=== PATIENT | female | born 2000 | race African-American/Black ===

== ENCOUNTER 2025-05-01 08:23 | Outpatient (CLI) | payer BC ==
[2025-05-01 09:08] LABS: #Basophils 0.06 10x3/uL (0.0-0.2); #Eosinophils 0.22 10x3/uL (0.0-0.7); #Monocytes 0.86 10x3/uL (0.11-0.59); #Neutrophils 5.30 10x3/uL (1.40-6.50); %Basophils 0.7 % (0.0-1.0); %Eosinophils 2.5 % (0.0-10.0); %Lymphocytes 27.9 % (21.0-51.0); %Monocytes 9.6 % (0.0-10.0); %Neutrophils 59.0 % (42.0-75.0); Hematocrit 39.2 % (36.0-47.0); Hemoglobin 12.3 g/dL (12.0-16.0); Mean Corpuscular Hemoglobin 25.6 pg (27.0-31.0); Mean Corpuscular Volume 81.5 fL (78.0-98.0); Platelet Count 318 10x3/uL (130-400); Red Blood Cell (RBC) Count 4.81 mill/uL (4.20-5.40); White Blood Cell (WBC) Count 8.97 10x3/uL (4.8-10.8)
[2025-05-01 09:19] LABS: BHCG - Serum Negative (NEGATIVE); Pregs Control Background? CLEAR/WHITE (CLR/WHITE); Pregs Control Bar Appear? YES (CONTROL BAR)
[2025-05-01 09:24] LABS: ALT (SGPT) 26 U/L (Less than 34); AST (SGOT) 25 U/L (11-34); Albumin 3.7 g/dL (3.1-4.5); Alkaline Phosphatase 89 U/L (40-110); Anion Gap 14 mmol/L (10-20); BUN (Urea Nitrogen) 12 mg/dL (7.0-18.7); Bilirubin, Total 0.3 mg/dL (0.3-1.2); Calc. Creatinine Clearance 0 mL/min (70-130); Calcium 9.4 mg/dL (7.8-10.44); Carbon Dioxide 22 mmol/L (22-29); Chloride 104 mmol/L (98-107); Globulin 3.9 g/dL (2.4-3.5); Glucose 83 mg/dL (70-105); Potassium 3.6 mmol/L (3.5-5.1); Sodium 136 mmol/L (136-145)
== END 2025-05-01 08:24 | disposition home or self-care (01) ==
LOC: LABBT 08:23
PROVIDERS: ATTEND Surgery
DX: Z01.812 Encounter for preprocedural laboratory examination (principal); K21.9 Gastro-esophageal reflux disease without esophagitis; E66.01 Morbid (severe) obesity due to excess calories
CPT/HCPCS: 80053; 83036; 84703; 85025

== ENCOUNTER 2025-05-06 07:46 | Inpatient (IN) | payer BC ==
[2025-05-01 08:43] VITALS: BMI 44.1
[2025-05-06] MEDS ORDERED: Rocuronium Bromide 10 MG/ML (10ML VIAL) ONE (08:12)
[2025-05-06] MEDS ORDERED: fentaNYL PF 100 MCG/2 ML SYRINGE ONE ×2 (08:12→10:40)
[2025-05-06] MEDS ORDERED: Lidocaine 1% PF 5 ML VIAL ONE (08:12)
[2025-05-06] MEDS ORDERED: Acetaminophen 500 MG TAB ONE (08:38)
[2025-05-06] MEDS ORDERED: Heparin 5,000 UNITS/ML VIAL ONE (08:38)
[2025-05-06] MEDS ORDERED: Bupivacaine 0.25% HCL 30 ML VIAL ONE (08:53)
[2025-05-06] MEDS ORDERED: CEFAZOLIN 2 GM VIAL ONE (09:09)
[2025-05-06] MEDS ORDERED: PHENYLEPHRINE-NS 100 MCG/ML 10 ML SYRINGE ONE (10:03)
[2025-05-06] MEDS ORDERED: Ondansetron PF 4 MG/2 ML Vial ONE ×2 (10:57→13:28)
[2025-05-06] MEDS ORDERED: SUGAMMADEX SODIUM 200 MG/2 ML VIAL ONE (11:06)
[2025-05-06] MEDS ORDERED: HYDROmorphone 0.5 MG/0.5 ML SYRINGE ONE ×2 (12:30→15:18)
[2025-05-06] MEDS ORDERED: Ondansetron PF 4 MG/2 ML Vial IVP PRN (12:35)
[2025-05-06] MEDS ORDERED: Dextrose 50% Abboject 50 ML SYRINGE SLOW IVP PRN (12:35)
[2025-05-06] MEDS ORDERED: diphenhydrAMINE 50 MG/ML VIAL IVP PRN (12:35)
[2025-05-06] MEDS ORDERED: hydrALAZINE 20 MG/ML VIAL SLOW IVP PRN (12:35)
[2025-05-06] MEDS ORDERED: Glucagon 1 MG/ML KIT IM PRN (12:35)
[2025-05-06] MEDS: D5 1/2 NS w/20 mEq KCL 1,000 ML IV SCH (18:00)
[2025-05-06] MEDS: oxyCODONE 5 MG TAB PO PRN (18:03)
[2025-05-07 05:20] LABS: #Basophils 0.03 10x3/uL (0.0-0.2); #Eosinophils Less than 0.03 10x3/uL (0.0-0.7); #Monocytes 1.33 10x3/uL (0.11-0.59); #Neutrophils 8.24 10x3/uL (1.40-6.50); %Basophils 0.3 % (0.0-1.0); %Eosinophils 0.2 % (0.0-10.0); %Lymphocytes 18.3 % (21.0-51.0); %Monocytes 11.3 % (0.0-10.0); %Neutrophils 69.6 % (42.0-75.0); Anion Gap 6 mmol/L (10-20); BUN (Urea Nitrogen) 5 mg/dL (7.0-18.7); Calc. Creatinine Clearance 239 mL/min (70-130); Calcium 8.5 mg/dL (7.8-10.44); Carbon Dioxide 25 mmol/L (22-29); Chloride 110 mmol/L (98-107); Glucose 105 mg/dL (70-105); Hematocrit 32.6 % (36.0-47.0); Hemoglobin 10.3 g/dL (12.0-16.0); Mean Corpuscular Hemoglobin 26.2 pg (27.0-31.0); Mean Corpuscular Volume 83.0 fL (78.0-98.0); Platelet Count 286 10x3/uL (130-400); Potassium 4.1 mmol/L (3.5-5.1); Red Blood Cell (RBC) Count 3.93 mill/uL (4.20-5.40); Sodium 137 mmol/L (136-145); White Blood Cell (WBC) Count 11.82 10x3/uL (4.8-10.8)
[2025-05-07 07:33] VITALS: BP 106/73; TEMP 98.1
[2025-05-07] MEDS: Enoxaparin 40 MG (0.4 mL) SYRINGE SC SCH (10:02)
[2025-05-07] MEDS: Pantoprazole 40 MG VIAL IVP SCH (10:02)
[2025-05-07] MEDS ORDERED: Enoxaparin 40 MG (0.4 mL) SYRINGE SC SCH (21:00)
== END 2025-05-07 11:20 | disposition home or self-care (01) | DRG 621 ==
LOC: SDC 07:46 → SURG A 12:35
PROVIDERS: ADMIT Surgery; ATTEND Surgery
PROC: 0D164ZA Bypass Stomach to Jejunum, Percutaneous Endoscopic Approach (ICD-10-PCS; principal; 2025-05-06)
PROC: 8E0W4CZ Robotic Assisted Procedure of Trunk Region, Percutaneous Endoscopic Approach (ICD-10-PCS; 2025-05-06)
DX: E66.01 Morbid (severe) obesity due to excess calories (principal); K21.9 Gastro-esophageal reflux disease without esophagitis; Z68.41 Body mass index [BMI] 40.0-44.9, adult; Z88.8 Allergy status to other drugs, medicaments and biological substances; Z88.2 Allergy status to sulfonamides
CPT/HCPCS: 36415; 80048; 85025; J0169; J0665; J1100; J1171; J1644; J1650; J2405; J2470; J2704; J3010; J3480; S2900

== ENCOUNTER 2025-05-22 09:09 | Day surgery (SDC) | payer BC ==
[2025-05-22 09:44] VITALS: BP 117/74; TEMP 97.7
[2025-05-22] MEDS ORDERED: Ondansetron PF 4 MG/2 ML Vial ONE (09:45)
[2025-05-22] MEDS: Ondansetron PF 4 MG/2 ML Vial IVP PRN (09:45)
[2025-05-22] MEDS: Multivitamins, Adult 10 ML, Thiamine HCl 100 MG in Sodium Chloride 0.9% 1,000 ML IV SCH (09:55)
== END 2025-05-22 12:30 | disposition home or self-care (01) ==
LOC: ONC/OP 09:09
PROVIDERS: ATTEND Surgery
DX: E86.0 Dehydration (principal); Z88.2 Allergy status to sulfonamides; Z88.1 Allergy status to other antibiotic agents
CPT/HCPCS: 96365; 96366; 96375; J2405; J3411; J7030